=== PATIENT | female | born 1995 | race Caucasian/White ===

== ENCOUNTER 2018-02-16 18:39 | Inpatient (IN) ==
[2018-02-16] MEDS ORDERED: Aluminum/Magnesium/Simethacone Susp 30 ML UDC PO PRN (20:57)
[2018-02-16] MEDS ORDERED: Acetaminophen 325 MG Tablet PO PRN (20:57)
[2018-02-17 06:36] VITALS: BP 107/52; PULSE 67; RESP 17; TEMP 98.3; O2SAT 96
[2018-02-17 08:29] LABS: Calcium 8.6 mg/dL (8.5-10.1); Carbon Dioxide 26.4 meq/L (21.0-32.0)
[2018-02-17 08:31] LABS: Chol/HDL Ratio 2.36 Ratio; HDL Cholesterol 42.2 mg/dL (40.0-60.0)
[2018-02-17] MEDS ORDERED: ARIPiprazole 10 MG Tablet PO ONE (08:56)
[2018-02-17] MEDS ORDERED: ARIPiprazole 10 MG Tablet PO SCH (09:00)
--- NOTE | 2018-02-17 09:15 | P.HPPSY ---
Provisional Diagnosis Admission Date: February 16, 2018 20:00 Bipolar Disorder Competence Certification of Person's Competence To Provide Express and Informed Consent I have personally examined Sandhya Gerard, a person being served at [facility] on, February 17, 2018 0904. Express and informed consent means consent voluntarily given in writing, by a competent person, after sufficient explanation and disclosure of the subject matter involved to enable the person to make a knowing and willful decision without any element of force, fraud, deceit, duress, or other form of constraint or coercion. This person is 18 years of age or older, is not now known to be incompetent to consent to treatment with a guardian advocate, and does not have a health care surrogate or proxy currently making medical treatment decisions. I have found this person to be one of the following: [] Competent to provide express and informed consent, as defined above, for voluntary admission to this facility and is competent to provide express and informed consent for treatment. He/she has the consistent capacity to make well reasoned, willful, and knowing decisions concerning his or her medical or mental health treatment. The person fully and consistently understands the purpose of the admission for examination/placement and is fully capable of personally exercising all rights assured [place] [] Incompetent to provide express and informed consent to voluntary admission, and this is incompetent to provide express and informed consent to treatment. The person must be transferred to involuntary status and a petition for a guardian advocate filed with the Circuit Court. [] Refusing to provide express and informed consent to voluntary admission but is competent to provide express and informed consent for treatment. The person must be discharged or transferred to involuntary status. Form shall be completed within 24 hours of a person's arrival at the receiving facility and filed in the clinical record of each person: 1. Admitted on a voluntary basis 2. Permitted to provide express and informed consent to his/her own treatment 3. Allowed to transfer from involuntary to voluntary status 4. Prior to permitting a person to consent to his or her own treatment after having been previously found incompetent to consent to treatment. 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 Patient realized she was out of medical patient and so went to [facility] ED where she was Rios acted and admitted to this hospital. Patient denies any suicidal ideation any problems with auditory or visual hallucinations. Mental status examination is essentially normal. Patient said she has been somewhat sad, the anniversary of her girlfriends is February 22 PH patient has a history of previous episodes of depression and lionel that is been treated successfully with Abilify 10 mg once daily. Patient states that she normally is seen by a psychiatrist in the [facility] close to the [facility]. She claims that she found herself without medication or could not afford her medications so went to the emergency room to get a prescription. Documentation indicating the patient's need for Rios act is not available. - Inpatient Certification I certify that the inpatient services were ordered in accordance with Medicare regulations governing the order. This includes certification that hospital inpatient services are reasonable and necessary and in the case of services not specified as inpatient-only under 42 CFR 419.22(n), that they are appropriately provided as inpatient services in accordance to with the 2-midnight benchmark under 43 CFR 412.3(e) I certify that inpatient psychiatric hospital services are medically necessary. Evaluation and treatment and/or diagnostic testing are expected to improve the patient's condition. The patient needs on a daily basis, active treatment furnished directly by or requiring the supervision of inpatient psychiatric facility personnel. PMFSH - History History Provided By: Patient - Medical / Surgical Hx Neg / Unobtainable Medical Problems Denied: Yes - Family History Family History: Family History (Last Updated 02/17/18 @ 09:12 by Daron Quiros MD) Other Depression Family history normal - Tobacco History Second Hand Smoke Exposure: No Smoking Status: Never smoker - Alcohol History How Often Do You Have a Drink Containing Alcohol: Never - Substance Use History Substance History: No History of Abuse - Travel History Recent Travel in the [place] Within the Last 8 Weeks: No Recent Travel Out of the Country Within the Last 8 Weeks: No - Immunization History Tetanus Immunization: Unsure Hx Influenza Vaccine This Season: Yes Medications and Allergies Active Medications: Active Medications Acetaminophen (Tylenol) 650 mg PO Q4H PRN PRN Reason: Pain 1-5 or Temp >101F Al Hydrox/Mg Hydrox/Simethicone (Mag-Al Plus Susp Liq) 30 ml PO Q6H PRN PRN Reason: DYSPEPSIA Al Hydroxide/Mg Hydroxide (Milk Of Aby Be) 30 ml PO DAILY PRN PRN Reason: Constipation Aripiprazole (Abilify) 10 mg PO DAILY ENEIDNA Diphenhydramine HCl (Benadryl) 50 mg PO Q6H PRN PRN Reason: For mild anxiety and/or EPS Diphenhydramine HCl (Benadryl) 50 mg PO HS PRN PRN Reason: INSOMNIA Diphenhydramine HCl (Benadryl Inj) 50 mg IM HS PRN PRN Reason: INSOMNIA Diphenhydramine HCl (Benadryl Inj) 50 mg IM Q6H PRN PRN Reason: For mild anxiety and/or EPS Hydroxyzine HCl (Atarax) 50 mg PO Q6H PRN PRN Reason: ANXIETY Allergies Allergy/AdvReac Type Severity Reaction Status Date / Time No Known Allergies Allergy Verified 02/16/18 20:26 Results - Labs CBC & Chem 7: 02/17/18 07:37 Labs: Laboratory Results - last 24 hr 02/17/18 07:37 Sodium 138 Potassium 4.0 Chloride 104 Carbon Dioxide 26.4 Anion Gap 8 BUN 11 Creatinine 0.88 Estimated GFR 81 L Random Glucose 94 Calcium 8.6 Triglycerides 62 Cholesterol 100 L LDL Cholesterol, Calc 45 HDL Cholesterol 42.2 Cholesterol/HDL Ratio 2.36 Exam Vital signs: Vital Signs 02/16/18 20:00 02/17/18 06:00 Temperature 98.4 F 98.3 F Pulse Rate 79 67 Respiratory Rate 18 17 Blood Pressure 135/79 107/52 L Pulse Oximetry 94 L 96 Intake & Output 02/16/18 02/17/18 02/17/18 18:59 06:59 18:59 Weight 105.3 kg Other: Weight On Admission 105.3 kg Mental Status Examination Appearance: Appropriate Consciousness: Alert Orientation: x4 Motor Activity: Normal gait Speech: Unremarkable Language: Adequate Fund of Knowledge: Adequate Attention and Concentration: Adequate Memory: Unremarkable Mood: Appropriate Affect: Appropriate Thought Process & Associations: Intact Thought Content: Appropriate Hallucination Type: None Delusion Type: None Suicidal Ideation: No Suicidal Plan: No Suicidal Intention: No Homicidal Ideation: No Homicidal Plan: No Homicidal Intention: No Insight: Adequate Judgment: Adequate Assessment and Plan - Plan Plan: Estimated LOS: [] days Patient will be discharged home with prescriptions for for her home meds: Abilify 10 mg daily. Justification for Continued Inpatient Stay: February 17, 2018: There is no justification for the patient's continued stay and she will be discharged home
--- NOTE | 2018-02-17 09:24 | P.DSPSY ---
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 Patient realized she was out of medical patient and so went to [facility] ED where she was Rios acted and admitted to this hospital. Patient denies any suicidal ideation any problems with auditory or visual hallucinations. Mental status examination is essentially normal. Patient said she has been somewhat sad, the anniversary of her girlfriends is February 22 PH patient has a history of previous episodes of depression and lionel that is been treated successfully with Abilify 10 mg once daily. Patient states that she normally is seen by a psychiatrist in the [place] area close to the [employer]. She claims that she found herself without medication or could not afford her medications so went to the emergency room to get a prescription. Documentation indicating the patient's need for Rios act is not available. Tobacco Use In Past 30 Days: No How Often Do You Have a Drink Containing Alcohol: Never Hospital Course: February 17, 2018: Hospital course uneventful. Patient denies all symptoms of her recurring episodes of depression and lionel. She does admit to some anxiety about the end upcoming date of February 22 the anniversary of her best friends by pulmonary embolism. At the time of the patient's discharge she was in good spirits and appreciated the hospitalization that allowed her to quickly obtain a prescription for her Abilify 10 mg. The patient will be observed and participate in groups and unit activities until discharge. The plan would be for her to start her Abilify tonight after obtaining the prescription rather than being provided with the medication prior to her discharge. This would obviate the possibility of manipulation of using the hospitalization to obtain the medication that she relates she found she could not afford believes that through the [facility] she will be able to obtain her Abilify. - Discharge Discharge Date: 02/17/18 Discharge Disposition: Home - Discharge Instructions Discharge Diet: Regular Diet - Discharge Time > 30 minutes Mental Status Examination Appearance: Appropriate Consciousness: Alert Orientation: x4 Motor Activity: Normal gait Speech: Unremarkable Language: Adequate Fund of Knowledge: Adequate Attention and Concentration: Adequate Memory: Unremarkable Mood: Appropriate Affect: Appropriate Thought Process & Associations: Intact Thought Content: Appropriate Hallucination Type: None Delusion Type: None Suicidal Ideation: No Suicidal Plan: No Suicidal Intention: No Homicidal Ideation: No Homicidal Plan: No Homicidal Intention: No Insight: Adequate Judgment: Adequate Discharge/Advance Care Plan - Results Vital Signs: Last Vital Signs Temp 98.3 F 02/17/18 06:00 Pulse 67 02/17/18 06:00 Resp 17 02/17/18 06:00 BP 107/52 L 02/17/18 06:00 Pulse Ox 96 02/17/18 06:00 Lab Results: Abnormal Lab Results 02/17/18 07:37 Sodium 138 Potassium 4.0 Chloride 104 Carbon Dioxide 26.4 Anion Gap 8 BUN 11 Creatinine 0.88 Estimated GFR 81 L Random Glucose 94 Calcium 8.6 Triglycerides 62 Cholesterol 100 L LDL Cholesterol, Calc 45 HDL Cholesterol 42.2 Cholesterol/HDL Ratio 2.36 Laboratory Results Triglycerides 62 mg/dL (42-150) 02/17/18 07:37 Cholesterol 100 mg/dL (120-200) L 02/17/18 07:37 LDL Cholesterol, Calc 45 mg/dL (0-99) 02/17/18 07:37 HDL Cholesterol 42.2 mg/dL (40.0-60.0) 02/17/18 07:37 Summary of Procedures: None Pending Results: None - Medications Number of antipsychotic medications at discharge: 1 - Discharge Care Plan Goals to Promote Your Health: * To prevent worsening of your condition and complications * To maintain your health at the optimal level Directions to Meet Your Goals: Take your medications as prescribed Follow your dietary instruction Follow activity as directed Keep your appointments as scheduled Take your immunizations and boosters as scheduled If your symptoms worsen call your PCP, if no PCP go to Urgent Care Center or Emergency Room For 13/09 questions related to your inpatient stay or results of tests pending at discharge, please contact Dr. Daron Quiros MD at Smoking is Dangerous to Your Health. Avoid second hand smoking
[2018-02-17 17:37] LABS: Hemoglobin A1c 5.5 % (4.3-6.0)
== END 2018-02-17 11:15 | disposition home or self-care (01) | DRG 885 ==
LOC: H260 20:00
PROVIDERS: ADMIT Psychiatry & Neurology Child & Adolescent Psychiatry; ATTEND Psychiatry & Neurology Child & Adolescent Psychiatry
DX: F31.9 Bipolar disorder, unspecified